=== PATIENT | male | born 1980 | race Caucasian/White ===

== ENCOUNTER 2023-07-30 08:09 | Emergency (ER) | payer OTHER, SELFPAY ==
[2023-07-30 08:21] VITALS: BP 179/103; PULSE 81; TEMP 36.7; O2SAT 98; BMI 34.9
--- NOTE | 2023-07-30 08:34 | ED_ITS ---
HPI - Extremity Injury (Upper) General Chief Complaint: Extremity Injury, Upper Stated Complaint: UPPER EXTREMITY INJURY Time Seen by Provider: 07/30/23 08:26 Source: patient Mode of arrival: walk-in Limitations: no limitations History of Present Illness HPI narrative: 43-year-old male presents to the emergency department for right elbow pain. 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 The shoulder and wrist do not hurt and he did not fall onto his arm. He has not seen a physician in more than 25 years. Related Data Home Medications ?Medication ?Instructions ?Recorded ?Confirmed albuterol sulfate 90 mcg/actuation 2 inh inhalation PRN 07/30/23 07/30/23 breath activated powder inhaler Previous Rx's ?Medication ?Instructions ?Recorded ibuprofen 800 mg tablet 800 mg PO Q8H PRN pain #20 tabs 07/30/23 Review of Systems ROS Narrative A ten point review of systems is negative except as noted above. Exam Narrative Exam Narrative: Nurses note and vital signs reviewed and patient is not hypoxic. General: The patient appears well and in no apparent distress. Patient is resting comfortably on cart. Skin: Warm, dry, no pallor noted. There is no rash noted. Head: Normocephalic, atraumatic Eye: Normal conjunctiva, no drainage Ears, Nose, Mouth, and Throat: oral mucosa is moist. Nares patent. Cardiovascular: Regular Rate and Rhythm Respiratory: Patient is in no distress, no accessory muscle use, lungs are clear to auscultation, no wheezing, rales or rhonchi Back: non-tender GI: Soft and nontender Musculoskeletal: Right elbow is flexed. There is no obvious deformity or swelli ng. No bruising or erythema. Shoulder and wrist are nontender. He is able to fully extend his elbow but it causes some discomfort. Neurological: A&O, normal speech Psychiatric: Cooperative Constitutional Vital Signs, click to edit/add: Last Vital Signs Temp 98.0 F 07/30/23 08:21 Pulse 81 07/30/23 08:21 Resp 15 07/30/23 08:21 BP 179/103 H 07/30/23 08:21 Pulse Ox 98 07/30/23 08:21 O2 Del Method Room Air 07/30/23 08:58 Course Vital Signs Vital signs: Vital Signs Temperature 98.0 F 07/30/23 08:21 Pulse Rate 81 07/30/23 08:21 Respiratory Rate 15 07/30/23 08:21 Blood Pressure 179/103 H 07/30/23 08:21 Pulse Oximetry 98 07/30/23 08:21 Oxygen Delivery Method Room Air 07/30/23 08:21 Temperature 98.0 F 07/30/23 08:21 Pulse Rate 81 07/30/23 08:21 Respiratory Rate 15 07/30/23 08:21 Blood Pressure 179/103 H 07/30/23 08:21 Pulse Oximetry 98 07/30/23 08:21 Oxygen Delivery Method Room Air 07/30/23 08:58 MDM - Extremity Injury (Upper) MDM Narrative Medical decision making narrative: X-ray per radiologist shows no acute findings. Sling applied, application checked by me and found to be appropriate, he is neurovascularly intact. He will follow-up with orthopedics. Treatment diagnosis and follow-up were discussed with the patient. Differential Diagnosis Differential diagnosis: Likely other (Elbow sprain, elbow strain, elbow fracture) Discharge Plan Discharge Stand Alone Forms: Portal Instructions Chief Complaint: Extremity Injury, Upper Clinical Impression: Strain of elbow, right Patient Disposition: Home, Self-Care Time of Disposition Decision: 09:24 Condition: Good Mode of Transportation: Private Vehicle Prescriptions / Home Meds: New ibuprofen 800 mg tablet 800 mg PO Q8H PRN (Reason: pain) Qty: 20 0RF No Action albuterol sulfate 90 mcg/actuation aerosol powdr breath activated 2 inh inhalation PRN Print Language: Italian Instructions: How to Use a Sling (ED), Elbow Sprain (ED) Referrals: Physician,Non-Staff, MD [Primary Care Provider] - 1 week
--- NOTE | 2023-07-30 08:34 | XR_ITS ---
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 FINDINGS: BONES:No fracture, dislocation, bone lesion. Degenerative osteophyte projecting cephalad from the coronoid process. SOFT TISSUES:No visible soft tissue swelling. EFFUSION:None visible. OTHER: Negative. XR/XR elbow RT min 3V IMPRESSION: 1. No acute bone abnormality. 2. Degenerative changes. Electronically authenticated by: GEORGE LOCK Date: 07/30/2023 09:14
[2023-07-30 09:30] VITALS: BP 163/82
== END 2023-07-30 09:33 | disposition home or self-care (01) ==
PROVIDERS: Emergency Provider Emergency Medicine
DX: S46.811A Strain of other muscles, fascia and tendons at shoulder and upper arm level, right arm, initial encounter (principal); X50.9XXA Other and unspecified overexertion or strenuous movements or postures, initial encounter; Z79.899 Other long term (current) drug therapy
CPT/HCPCS: 73080; 99283

== ENCOUNTER 2023-10-08 07:23 | Outpatient (OUT) | payer OTHER, SELFPAY ==
--- NOTE | 2023-10-08 07:27 | XR_ITS ---
The [address] [address] Patient Name: JOSE LUIS BILLINGS MRN: [id number] date: 1980 Sex: M Assigned Patient Location: MRI Current Patient Location: MRI Accession/Order Number: [id number] Exam Date: 10/08/2023 07:30 Report Date: 10/08/2023 07:42 At the request of: GEORGE ELLIS Procedure: XR foreign body eye ZEYAD EXAMINATION: XR foreign body eye ZEYAD HISTORY: pre mri COMPARISON: No relevant comparison available. FINDINGS: ORBITS: Negative for a metallic foreign body. OTHER: Negative. XR/XR foreign body eye ZEYAD IMPRESSION: 1. No metallic foreign body within the orbits. Electronically authenticated by: GEORGE LOCK Date: 10/08/2023 07:42
--- NOTE | 2023-10-08 07:29 | MR_ITS ---
[address] [address] Patient Name: JOSE LUIS BILLINGS MRN: [id number] date: 1980 Sex: M Assigned Patient Location: MRI Current Patient Location: Accession/Order Number: [id number] Exam Date: 10/08/2023 07:40 Report Date: 10/11/2023 12:31 At the request of: GEORGE ELLIS Procedure: MR elbow RT wo con EXAM: MR elbow RT wo con HISTORY: strain of unspecified muscle, tendon of right arm COMPARISON: 07/30/2023 TECHNIQUE: MRI images obtained with multiple sequences. MRI of the right elbow without contrast. Sequences obtained by standard department protocol. FINDINGS: Biceps tendon is intact. Triceps tendon is intact. Small elbow joint effusion. No acute bone marrow edema. No significant degeneration of the elbow joint. Partial-thickness tearing/tendinosis of the common extensor tendon origin (coronal STIR image 15). Common flexor tendon origin is intact. Ulnar nerve is normal in size within the cubital tunnel. Brachialis tendon is intact. Ulnar collateral ligament is intact. Lateral ulnar collateral ligament and radial collateral ligaments are intact. MR/MR elbow RT wo con IMPRESSION: 1. Partial-thickness tearing/tendinosis of the common extensor tendon origin (coronal STIR image 15). 2. No acute ligamentous abnormality. 3. No full-thickness chondral loss of the elbow. Electronically authenticated by: MARÍA ELENA ASTUDILLO Date: 10/11/2023 12:31
== END 2023-10-08 07:24 | disposition home or self-care (01) ==
LOC: MRI 07:23
PROVIDERS: Visit Provider Orthopaedic Surgery
DX: S56.911A Strain of unspecified muscles, fascia and tendons at forearm level, right arm, initial encounter (principal); T15.90XA Foreign body on external eye, part unspecified, unspecified eye, initial encounter; M25.421 Effusion, right elbow; S56.511A Strain of other extensor muscle, fascia and tendon at forearm level, right arm, initial encounter
CPT/HCPCS: 70030; 73221

== ENCOUNTER 2024-01-10 14:52 | Outpatient (OUT) | payer OTHER, SELFPAY ==
--- NOTE | 2024-01-10 15:12 | XR_ITS ---
The [place] [id number] Patient Name: JOSE LUIS BILLINGS MRN: [id number] date: 1980 Sex: M Assigned Patient Location: RAD Current Patient Location: RAD Accession/Order Number: [id number] Exam Date: 01/10/2024 15:08 Report Date: 01/10/2024 15:25 At the request of: LEROY GRIJALVA Procedure: XR elbow LT 2V PROCEDURE: XR elbow LT 2V COMPARISON: None. HISTORY: Crush Injury Left Arm FINDINGS: BONES:No fracture, acute abnormality, or significant arthropathy. Minimal enthesopathic spurring of the olecranon at the triceps insertion SOFT TISSUES:Mild anterior soft tissue swelling EFFUSION:None visible. OTHER: Negative. XR/XR elbow LT 2V IMPRESSION: Anterior soft tissue swelling, no acute fracture Electronically authenticated by: JUSTO PARR Date: 01/10/2024 15:25
== END 2024-01-10 14:53 | disposition home or self-care (01) ==
LOC: RAD 14:56
PROVIDERS: Visit Provider Nurse Practitioner Family
DX: S57.02XA Crushing injury of left elbow, initial encounter (principal)
CPT/HCPCS: 73070

== ENCOUNTER 2024-01-13 13:56 | Outpatient (OUT) | payer OTHER, SELFPAY ==
--- NOTE | 2024-01-13 14:02 | XR_ITS ---
The [address] [address] Patient Name: JOSE LUIS BILLINGS MRN: [id number] date: 1980 Sex: M Assigned Patient Location: RAD Current Patient Location: [facility] Accession/Order Number: [id number] Exam Date: 01/13/2024 14:05 Report Date: 01/13/2024 14:40 At the request of: LEROY GRIJALVA Procedure: XR forearm LT 2V EXAM: XR forearm LT 2V HISTORY: Crush Injury Left Forearm COMPARISON: None. TECHNIQUE: 2 views of left forearm FINDINGS: There is no acute fracture or dislocation. The soft tissue is unremarkable. XR/XR forearm LT 2V IMPRESSION: No acute bone abnormality. Electronically authenticated by: JH ERWIN Date: 01/13/2024 14:40
== END 2024-01-13 13:57 | disposition home or self-care (01) ==
LOC: RAD 13:59
PROVIDERS: Visit Provider Nurse Practitioner Family
DX: S57.82XA Crushing injury of left forearm, initial encounter (principal)
CPT/HCPCS: 73090

== ENCOUNTER 2024-02-16 06:42 | Outpatient (OUT) | payer SELFPAY ==
--- NOTE | 2024-02-16 06:45 | MR_ITS ---
The [address] [address] Patient Name: JOSE LUIS BILLINGS MRN: [id number] date: 1980 Sex: M Assigned Patient Location: MRI Current Patient Location: Accession/Order Number: [id number] Exam Date: 02/16/2024 06:52 Report Date: 02/17/2024 09:19 At the request of: LEROY GRIJALVA Procedure: MR elbow LT wo con EXAM: MR elbow LT wo con REASON FOR EXAM: crush injury left forearm S57.82XA; contusion left elbow. TECHNIQUE: Multiplanar, multisequence imaging of the left elbow was performed without contrast COMPARISON: Radiographs 01/10/2024. FINDINGS: Laterally, superimposed on tendinosis, near-complete tear of the common extensor tendon origin. Posterior Iris appear intact. There is approximately 1.8 cm of distal retraction of the anterior torn fibers. Poor visualization of the radial collateral ligament likely reflects high-grade sprain/complete tear. Visualized portions of the lateral ulnar collateral and annular ligaments appear intact. Medially, the common flexor tendon origin demonstrates thickening and intermediate signal consistent with tendinosis. No tear. The ulnar collateral ligament appears thickened with intermediate signal potentially reflecting prior low to intermediate grade sprain with surrounding edema. A high-grade tear is not confidently identified. The distal triceps tendon is intact. The distal biceps and brachialis tendons are intact. There is bone marrow edema involving the lateral epicondyle as well as the lateral margin of the radial head. Possible nondisplaced fracture of the peripheral margin of the radial head identified. Small joint effusion is present. Mild osteoarthritis of the ulnohumeral articulation. Probable posttraumatic subcutaneous edema is present about the elbow. MR/MR elbow LT wo con IMPRESSION: 1. Tendinosis with near complete tear of the common extensor tendon origin. The far posterior fibers appear intact. 2. High-grade sprain/tear of the radial collateral ligament. 3. Suspect nondisplaced fracture of the peripheral margin of the radial head. 4. Mild osteoarthritis. 5. Mild common flexor tendinosis without tear. 6. Probable subacute low to intermediate grade sprain of the UCL. Electronically authenticated by: HALINA MURRAY Date: 02/17/2024 09:19
== END 2024-02-16 06:43 | disposition home or self-care (01) ==
LOC: MRI 06:42
PROVIDERS: Visit Provider Nurse Practitioner Family
DX: S57.82XA Crushing injury of left forearm, initial encounter (principal); S50.02XA Contusion of left elbow, initial encounter; S50.312A Abrasion of left elbow, initial encounter; S56.512A Strain of other extensor muscle, fascia and tendon at forearm level, left arm, initial encounter; S53.432A Radial collateral ligament sprain of left elbow, initial encounter
CPT/HCPCS: 73221